=== PATIENT | female | born 1990 | race Caucasian/White ===

== ENCOUNTER 2020-09-08 09:47 | Emergency (ER) | payer OTHER ==
--- NOTE | 2020-09-08 09:55 | ERPHSYRPT ---
- History of Present Illness Time Seen by Provider: 09/08/20 09:55 Source: patient Exam Limitations: no limitations Physician History: This is a 30-year-old white female patient of Dr. Stevenson who has chronic lower back pain. Typically right side is worse than the left. Approximately 2 weeks ago patient's back pain was worsening. She was seen by Dr. Stevenson in his office who prescribed naproxen and Flexeril. He also prescribed physical therapy. In the last 2 weeks, the patient has been consistent in using physical therapy. However, in the last couple of days the pain seems to have worsened. Patient has had no falls or acute trauma to the back. Patient has no urinary symptoms. Patient has no loss of bowel or bladder control. No foot drop. Timing/Duration: week(s) (2 to 3 weeks) Method of Injury: other (No injury) Back Pain Location: lumbar spine Back Pain Radiation: buttocks, upper legs Severity of Pain-Max: moderate Severity of Pain-Current: moderate Modifying Factors: Improves With: movement Associated Symptoms: tingling in legs/feet (Mild and intermittent left side), No loss of bowel control, No problems urinating Previous symptoms: same symptoms as today, recently seen, recently treated Allergies/Adverse Reactions: [facility] Allergy (Verified 09/08/20 10:02) Rash by patient Home Medications: Cyclobenzaprine HCl 10 mg [Cyclobenzaprine 10 MG] 1 tab PO TID PRN 09/08/20 [History] Naproxen 375 mg [Naprosyn 375 mg] 1 tab PO BID 09/08/20 [History] Hx Tetanus, Diphtheria Vaccination/Date Given: Yes Hx Influenza Vaccination/Date Given: No Hx Pneumococcal Vaccination/Date Given: No Travel Risk - International Travel Have you traveled outside of the country in past 3 weeks: No - Coronavirus Screening Are you exhibiting any of the following symptoms?: No Close contact with a COVID-19 positive Pt in past 14-21 Days: No - Review of Systems Constitutional: No Symptoms Eyes: No Symptoms Ears, Nose, & Throat: No Symptoms Respiratory: No Symptoms Cardiac: No Symptoms Abdominal/Gastrointestinal: No Symptoms Genitourinary Symptoms: No Symptoms Musculoskeletal: Back Pain, No Injury Skin: No Symptoms Neurological: No Symptoms Psychological: No Symptoms Endocrine: No Symptoms Hematologic/Lymphatic: No Symptoms Immunological/Allergic: No Symptoms All Other Systems: Reviewed and Negative - Past Medical History Pertinent Past Medical History: No Neurological History: No Pertinent History Cardiac History: No Pertinent History Respiratory History: No Pertinent History Endocrine Medical History: No Pertinent History Musculoskeletal History: No Pertinent History Other Medical History: past back pain. - Past Surgical History Past Surgical History: Yes Neuro Surgical History: No Pertinent History Cardiac: No Pertinent History Respiratory: No Pertinent History Gastrointestinal: No Pertinent History Genitourinary: No Pertinent History Musculoskeletal: No Pertinent History Female Surgical History: No Pertinent History - Social History Smoking Status: Never smoker How long have you smoked: none Exposure to second hand smoke: No Drug Use: none Patient Lives Alone: No - Nursing Vital Signs Nursing Vital Signs: Initial Vital Signs Temperature 98.0 F 09/08/20 10:04 Pulse Rate 88 09/08/20 10:04 Respiratory Rate 18 09/08/20 10:04 Blood Pressure 131/60 09/08/20 10:04 O2 Sat by Pulse Oximetry 98 09/08/20 10:04 Pain Scale Pain Intensity 8 - Physical Exam General Appearance: no apparent distress, alert, anxiety Eye Exam: PERRL/EOMI, eyes nml inspection Ears, Nose, Throat Exam: normal ENT inspection, moist mucous membranes Neck Exam: normal inspection, non-tender, supple, full range of motion Respiratory Exam: airway intact, No chest tenderness, No respiratory distress Gastrointestinal Exam: No tenderness Pelvic Exam: not done Rectal Exam: not done Back Exam: normal inspection, decreased range of motion, muscle spasm Extremity Exam: normal inspection, normal range of motion, pelvis stable Neurologic Exam: alert, oriented x 3, cooperative, central sterilization technician II-XII nml as tested, normal mood/affect, nml cerebellar function, nml station & gait, sensation nml Skin Exam: normal color, warm, dry Lymphatic Exam: No adenopathy SpO2 Interpretation: normal O2 Delivery: Room Air - Course Nursing assessment & vital signs reviewed: Yes Ordered Tests: Medication Summary Discontinued Medications Generic Name Dose Route Start Last Admin Trade Name Freq PRN Reason Stop Dose Admin Methylprednisolone Sodium Succinate 125 mg 09/08/20 10:16 Solu-Medrol 125 Mg IM 09/08/20 10:17 STAT ONE - Progress Progress: pain not gone completely, re-examined Progress Note: 09/08/20 10:23 Medical decision making: This patient recently underwent x-rays of her hips and lumbar spine. There is no acute fracture, subluxation or dislocation. I will not repeat the x-rays. I will change her medication regimen to help her pain. She is to follow-up with Dr. Stevenson in his office and they can make arrangements for an outpatient MRI as appropriate. Counseled pt/family regarding: diagnosis, need for follow-up, rad results - Departure Departure Disposition: Home Clinical Impression: Back pain Condition: Stable Critical Care Time: No Referrals: RACHANA STEVENSON [Primary Care Provider] - Additional Instructions: Stop your naproxen. Stop your Flexeril. Take the new medications as prescribed. Call Dr. Stevenson's office today to make arrangements for follow-up appointment and for further management of your back pain Prescriptions: Hydrocodone/APAP 5-325 Tab^^^ [Lula 5-325 Tablet^^^] 1 tab PO Q8H PRN PRN #6 tablet MDD 3 PRN Reason: Pain Carisoprodol 350 mg [Soma 350 mg] 350 mg PO Q8H PRN PRN #10 tablet PRN Reason: Muscle Spasms Prednisone 10 mg [Deltasone 10 mg] 10 mg PO TID #12 tablet
[2020-09-08] MEDS ORDERED: solu-MEDROL 125 MG ONE (10:20)
[2020-09-08] MEDS: solu-MEDROL 125 MG IM ONE (10:22)
[2020-09-08 10:53] VITALS: BP 107/63; PULSE 75; O2SAT 97
== END 2020-09-08 10:50 | disposition home or self-care (01) ==
LOC: ED 09:47
DX: M54.5 Low back pain (principal); G89.4 Chronic pain syndrome; F45.42 Pain disorder with related psychological factors; R25.2 Cramp and spasm
CPT/HCPCS: 96372; 99283; J2930

== ENCOUNTER 2021-03-18 12:39 | Day surgery (SDC) | payer OTHER ==
[2013-08-15 12:25] VITALS: BP 113/63
[2021-03-18] MEDS ORDERED: Depo-Medrol 40 MG/ML IM ONE (12:40)
[2021-03-18] MEDS ORDERED: Xylocaine 1% Vial 30 ML PF IJ ONE (12:40)
[2021-03-18] MEDS ORDERED: Sodium Chloride 0.9(Preservative Free) 10 ML IJ ONE (12:40)
--- NOTE | 2021-03-18 14:55 | XRAY ---
Indication: Left L4-S1 transforaminal BI. Intraoperative fluoroscopy provided for 25 seconds. 5 digital spot images submitted for interpretation demonstrates posterior needle tips projecting over the expected left L4 and L5 nerve roots. Small amount of contrast injected for needle tip placement. Correlate with intraoperative findings/report.
--- NOTE | 2021-03-18 14:59 | XRAY ---
25 seconds fluoroscopy time in surgery for left L4-S1 transforaminal BI.
[2021-03-18] MEDS ORDERED: Lactated Ringers 1,000 ML IV ONE (16:05)
== END 2021-03-18 14:42 | disposition home or self-care (01) ==
LOC: SDC-PAIN 12:39
PROVIDERS: ATTEND Psychiatry & Neurology Pain Medicine
DX: M54.16 Radiculopathy, lumbar region (principal); F32.9 Major depressive disorder, single episode, unspecified; F41.9 Anxiety disorder, unspecified
CPT/HCPCS: 72100; 77003; 84703; J1030; J2001

== ENCOUNTER 2023-11-02 09:46 | Emergency (ER) | payer OTHER ==
--- NOTE | 2023-11-02 09:59 | ERPHSYRPT ---
- History of Present Illness Time Seen by Provider: 11/02/23 09:59 Source: patient Exam Limitations: no limitations Physician History: This is a 33-year-old white female patient of Dr. Stevenson who is concerned that she might be miscarrying a 12-week old fetus. Patient has not seen her associate professor of counseling. She has not obtained an ultrasound yet. Patient noticed some spotting vaginally approximately 5 days ago. She did not experience pain until late last evening and earlier today. The patient has been passing clots. The cramping is in the pelvis and it is worsening. Patient states this is her fourth . Patient has a history of chronic low back pain. She does have a pain specialist that she has seen in the past, Dr. Luis. Patient denies chest pain. Patient denies shortness of breath. Timing/Duration: day(s) (5), worse Severity: mild (To moderate) Modifying Factors: Improves With: nothing Associated Symptoms: abdominal pain (Suprapubic and pelvic cramping), No shortness of breath, No chest pain, No fever, No loss of appetite Allergies/Adverse Reactions: cefaclor [From [employer]] Allergy (Verified 11/02/23 10:03) Rash by patient Home Medications: No Reportable Medications [No Reported Medications] 11/02/23 [History] Hx Tetanus, Diphtheria Vaccination/Date Given: Yes Hx Influenza Vaccination/Date Given: No Hx Pneumococcal Vaccination/Date Given: No Travel Risk - International Travel Have you traveled outside of the country in past 3 weeks: No - Coronavirus Screening Are you exhibiting any of the following symptoms?: No Close contact with a COVID-19 positive Pt in past 14-21 Days: No - Review of Systems Constitutional: No Symptoms Eyes: No Symptoms Ears, Nose, & Throat: No Symptoms Respiratory: No Symptoms Cardiac: No Symptoms Abdominal/Gastrointestinal: Abdominal Pain (Suprapubic and pelvic cramping) Genitourinary Symptoms: Vaginal Bleeding Musculoskeletal: No Symptoms Skin: No Symptoms Neurological: No Symptoms Psychological: No Symptoms Endocrine: No Symptoms Hematologic/Lymphatic: No Symptoms Immunological/Allergic: No Symptoms All Other Systems: Reviewed and Negative - Past Medical History Pertinent Past Medical History: No Neurological History: No Pertinent History Cardiac History: No Pertinent History Respiratory History: No Pertinent History Endocrine Medical History: No Pertinent History Musculoskeletal History: No Pertinent History Other Medical History: past back pain. - Past Surgical History Past Surgical History: Yes Neuro Surgical History: No Pertinent History Cardiac: No Pertinent History Respiratory: No Pertinent History Gastrointestinal: No Pertinent History Genitourinary: No Pertinent History Musculoskeletal: No Pertinent History Female Surgical History: No Pertinent History - Social History Smoking Status: Never smoker How long have you smoked: none Exposure to second hand smoke: No Drug Use: none Patient Lives Alone: No - Nursing Vital Signs Nursing Vital Signs: Initial Vital Signs Pulse Rate 75 11/02/23 10:02 Respiratory Rate 19 11/02/23 10:02 Blood Pressure 115/75 11/02/23 10:02 O2 Sat by Pulse Oximetry 100 11/02/23 10:02 Pain Scale Pain Intensity 5 - Physical Exam General Appearance: mild distress, alert, anxiety Eye Exam: PERRL/EOMI, eyes nml inspection Ears, Nose, Throat Exam: normal ENT inspection, moist mucous membranes Neck Exam: normal inspection, non-tender, supple, full range of motion Respiratory Exam: normal breath sounds, lungs clear, airway intact, No chest tenderness, No respiratory distress Cardiovascular Exam: regular rate/rhythm, normal heart sounds, normal peripheral pulses Gastrointestinal/Abdomen Exam: soft, normal bowel sounds, tenderness, No guarding (Suprapubic and pelvic cramping) Pelvic Exam: not done Rectal Exam: not done Extremity Exam: normal inspection, normal range of motion, pelvis stable Neurologic Exam: alert, oriented x 3, cooperative, 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, normal mood/affect, nml station & gait, sensation nml Skin Exam: normal color, warm, dry Lymphatic Exam: No adenopathy SpO2 Interpretation: normal O2 Delivery: Room Air - Course Nursing assessment & vital signs reviewed: Yes Ordered Tests: Active Orders 24 hr Category Date Time Status IV Insertion STAT Care 11/02/23 10:07 Active OB <14 WKS 1ST GESTATION [US] Stat Exams 11/02/23 10:11 Completed CBC W DIFF Stat Lab 11/02/23 10:35 Completed CMP Stat Lab 11/02/23 10:35 Completed HCG, Quantitative (Inhouse) Stat Lab 11/02/23 10:35 Completed UA W/RFX UR CULTURE Stat Lab 11/02/23 11:45 Ordered Lab/Rad Data: Laboratory Result Diagrams 11/02/23 10:35 11/02/23 10:35 Laboratory Results 11/02/23 11/02/23 11/02/23 Range/Units 10:35 10:35 10:35 WBC (4.0-10.5) x10^3/uL RBC (4.1-5.4) x10^6/uL Hgb (12.0-16.0) g/dL Hct (35-47) % MCV (78-100) fL MCH (26-32) pg MCHC (32-36) g/dL RDW (11.5-14.0) % Plt Count (150-450) x10^3/uL MPV (7.5-11.0) fL Gran % (36.0-66.0) % Immature Gran % (Auto) (0.00-0.4) % Nucleat RBC Rel Count (0.00-0.1) % Eos # (Auto) (0-0.5) x10^3/uL Immature Gran # (Auto) (0.00-0.03) x10^3u/L Absolute Lymphs (auto) (1.0-4.6) x10^3/uL Absolute Monos (auto) (0.0-1.3) x10^3/uL Absolute Nucleated RBC (0.00-0.01) x10^3u/L Lymphocytes % (24.0-44.0) % Monocytes % (0.0-12.0) % Eosinophils % (0.00-5.0) % Basophils % (0.0-0.4) % Absolute Granulocytes (1.4-6.9) x10^3/uL Basophils # (0-0.4) x10^3/uL Sodium 134 L (137-145) mmol/L Potassium 3.8 (3.5-5.1) mmol/L Chloride 104 (98-107) mmol/L Carbon Dioxide 21 L (22-30) mmol/L Anion Gap 11.7 (5-15) MEQ/L BUN 12 (7-17) mg/dL Creatinine 0.80 (0.52-1.04) mg/dL Estimated GFR 99.7 ML/MIN Glucose 103 (74-106) mg/dL Calcium 9.0 (8.4-10.2) mg/dL Total Bilirubin 0.60 (0.2-1.3) mg/dL AST 25 (14-36) U/L ALT 14 (0-35) U/L Alkaline Phosphatase 65 (38-126) U/L Serum Total Protein 7.7 (6.3-8.2) g/dL Albumin 4.3 (3.5-5.0) g/dL Beta HCG, Quant 48800 mIU/ml Rh Factor POSITIVE 11/02/23 Range/Units 10:35 WBC 9.7 (4.0-10.5) x10^3/uL RBC 4.78 (4.1-5.4) x10^6/uL Hgb 10.7 L (12.0-16.0) g/dL Hct 35.1 (35-47) % MCV 73.4 L (78-100) fL MCH 22.4 L (26-32) pg MCHC 30.5 L (32-36) g/dL RDW 18.0 H (11.5-14.0) % Plt Count 274 (150-450) x10^3/uL MPV 10.1 (7.5-11.0) fL Gran % 73.0 H (36.0-66.0) % Immature Gran % (Auto) 0.2 (0.00-0.4) % Nucleat RBC Rel Count 0.0 (0.00-0.1) % Eos # (Auto) 0.17 (0-0.5) x10^3/uL Immature Gran # (Auto) 0.02 (0.00-0.03) x10^3u/L Absolute Lymphs (auto) 1.68 (1.0-4.6) x10^3/uL Absolute Monos (auto) 0.69 (0.0-1.3) x10^3/uL Absolute Nucleated RBC 0.00 (0.00-0.01) x10^3u/L Lymphocytes % 17.3 L (24.0-44.0) % Monocytes % 7.1 (0.0-12.0) % Eosinophils % 1.8 (0.00-5.0) % Basophils % 0.6 (0.0-0.4) % Absolute Granulocytes 7.09 H (1.4-6.9) x10^3/uL Basophils # 0.06 (0-0.4) x10^3/uL Sodium (137-145) mmol/L Potassium (3.5-5.1) mmol/L Chloride (98-107) mmol/L Carbon Dioxide (22-30) mmol/L Anion Gap (5-15) MEQ/L BUN (7-17) mg/dL Creatinine (0.52-1.04) mg/dL Estimated GFR ML/MIN Glucose (74-106) mg/dL Calcium (8.4-10.2) mg/dL Total Bilirubin (0.2-1.3) mg/dL AST (14-36) U/L ALT (0-35) U/L Alkaline Phosphatase (38-126) U/L Serum Total Protein (6.3-8.2) g/dL Albumin (3.5-5.0) g/dL Beta HCG, Quant mIU/ml Rh Factor - Progress Progress: improved, pain not gone completely Progress Note: 11/02/23 10:17 This patient's medical issue is 1 of moderate complexity. The level of complexity in the workup performed is based on review of the patient's past medical history review of the patient's medication list, review of patient's drug allergy list, history of present illness and physical findings on examination. This patient's workup includes placement of intravenous line, CBC, CMP, urinalysis, qualitative and quantitative test, and OB ultrasound less than 14 weeks. 11/02/23 12:05 I reviewed and interpreted the patient's lab results. Patient does have a hemoglobin is slightly low at 10.7. She has a quantitative hCG at over 14,000. The OB early ultrasound less than 14 weeks shows a thickened endometrial stripe and endocervix. 2.7 cm cystic mass with tiny fluid present. No pole or heart tones present. Query blighted ovum with impending spontaneous . No suspicious adnexal masses. 11/02/23 12:07 Of importance, after the ultrasound was performed, the patient did pass tissue with the dimensions of 2.7 cm cystic mass. We sent this past tissue to pathology for gross examination determine if this is miscarriage product of conception. Counseled pt/family regarding: lab results, diagnosis, need for follow-up, rad results Medical Desision Making - Diagnostic Testing Diagnostic test were ordered, analyzed, and reviewed by me: Yes Radiological Interpretation: Reviewed by me, Teleradiologist Report - Risk of complications Low Risk: Low risk of morbidity from additional dx testing or treatment - Departure Departure Disposition: Home Clinical Impression: Miscarriage, threatened, early Condition: Stable Critical Care Time: No Referrals: RACHANA STEVENSON [Primary Care Provider] - Follow up/PCP as directed Additional Instructions: Drink plenty of fluids. Call your associate professor of counseling today to make arrangements for follow-up appointment for examination and repeat quantitative hCG if indicated.
[2023-11-02 10:15] VITALS: TEMP 98.4
[2023-11-02 10:46] LABS: Absolute Neutrophil Ct (ANC) 7.09 x10^3/uL (1.4-6.9); BASOPHIL % 0.6 % (0.0-0.4); Basophil (Absolute #) 0.06 x10^3/uL (0-0.4); Eosinophil % 1.8 % (0.00-5.0); Eosinophil (Absolute #) 0.17 x10^3/uL (0-0.5); Hematocrit 35.1 % (35-47); Hemoglobin 10.7 g/dL (12.0-16.0); IMMATURE GRAN # 0.02 x10^3u/L (0.00-0.03); IMMATURE GRAN % 0.2 % (0.00-0.4); Lymphocyte (Absolute #) 1.68 x10^3/uL (1.0-4.6); Lymphocytes % 17.3 % (24.0-44.0); Mean Cell Volume 73.4 fL (78-100); Mean Corpuscular Hemoglobin 22.4 pg (26-32); Mean Corpuscular Hgb Concent. 30.5 g/dL (32-36); Mean Platelet Volume 10.1 fL (7.5-11.0); Monocyte (Absolute #) 0.69 x10^3/uL (0.0-1.3); Monocytes % 7.1 % (0.0-12.0); Platelet Count 274 x10^3/uL (150-450); Red Blood Count 4.78 x10^6/uL (4.1-5.4); White Blood Count 9.7 x10^3/uL (4.0-10.5)
[2023-11-02 11:07] LABS: ALBUMIN 4.3 g/dL (3.5-5.0); ANION GAP 11.7 MEQ/L (5-15); BILIRUBIN,TOTAL 0.6 mg/dL (0.2-1.3); Creatinine 1 0.8 mg/dL (0.52-1.04); EST GLOMERULAR FILTRATION RATE 99.7 ML/MIN; Potassium 3.8 mmol/L (3.5-5.1); Total Protein 7.7 g/dL (6.3-8.2)
--- NOTE | 2023-11-02 11:53 | XRAY ---
Indication: Bleeding and cramping. Two-dimensional transabdominal early OB ultrasound performed. Comparison: None for this . Uterus is retroflexed with thickened endometrial stripe up to 3.5 cm. Endocervix demonstrates tiny fluid with a 2.7 cm cystic mass without pole/heart tones. Left and right ovaries are sonographically unremarkable. No suspicious adnexal mass or free fluid. Impression: Thickened endometrial stripe and endocervix 2.7 cm cystic mass with tiny fluid. No pole/heart tones. Query blighted ovum with impending spontaneous .
[2023-11-02 12:33] LABS: Appearance Clear (Clear); Bacteria None Seen /HPF (None Seen); Bilirubin Negative (Negative); Blood Moderate (Negative); Epithelial Cells None Seen /HPF (None Seen); Glucose, Urine Negative (Negative); Hyaline Casts NONE SEEN /LPF (0-2); Ketones Negative (Negative); Leukocyte Esterase Negative (Negative); Nitrite Negative (Negative); Ph 7.5 (4.6-8.0); Protein,Urine Dip Negative (Negative); RBC >100 /HPF (0-5); Urobilinogen 0.2 mg/dL (0.2); WBC 0-2 /HPF (0-5)
[2023-11-02 12:34] LABS: ADD URINE CULTURE? NO (NO)
[2023-11-02 12:42] VITALS: BP 116/68; PULSE 79; RESP 22; O2SAT 99
== END 2023-11-02 12:53 | disposition home or self-care (01) ==
LOC: ED 09:46
DX: O20.0 Threatened abortion (principal); R10.2 Pelvic and perineal pain
CPT/HCPCS: 36000; 36415; 76801; 80053; 81001; 84702; 85025; 86901; 99283

== ENCOUNTER 2024-11-11 21:44 | Observation (INO) | payer BC, OTHER ==
[2024-11-11 22:09] VITALS: TEMP 98.1
[2024-11-11] MEDS ORDERED: Lactated Ringers 1,000 ML IV ONE ×2 (22:23→22:39)
[2024-11-11] MEDS ORDERED: Sodium Chloride 100ML MINI-BAG PLUS 100 ML IV ONE (22:37)
[2024-11-11] MEDS ORDERED: OMNIPEN 2 GM ONE (22:37)
[2024-11-11] MEDS ORDERED: Celestone Soluspan 6MG/ML ONE (22:38)
[2024-11-11] MEDS ORDERED: Magnesium Sulfate 40 Gm/1000 Ml H2O Premix*** 1,000 ML IV ONE (22:39)
[2024-11-11] MEDS: Celestone Soluspan 6MG/ML IM ONE (22:54)
[2024-11-11 22:55] LABS: Hematocrit 38.7 % (34.1-44.9); Mean Cell Volume 87.6 fL (79.4-94.8); Mean Corpuscular Hemoglobin 29.4 pg (25.6-32.2); Mean Corpuscular Hgb Concent. 33.6 g/dL (32.2-35.5); Mean Platelet Volume 10.3 fL (9.4-12.3); Platelet Count 171 x10^3/uL (182-369); Red Blood Count 4.42 x10^6/uL (3.93-5.22)
[2024-11-11] MEDS: Lactated Ringers 1,000 ML IV SCH (22:56)
[2024-11-11] MEDS: OMNIPEN 2 GM*** 2 G in Sodium Chloride 100ML MINI-BAG PLUS 100 ML IV ONE (22:56)
[2024-11-11] MEDS: Magnesium Sulfate 40 Gm/1000 Ml H2O Premix*** 1,000 ML IV SCH (22:59)
[2024-11-11 23:00] LABS: Bacteria None Seen /HPF (None Seen); Bilirubin Negative (Negative); Blood Negative (Negative); Epithelial Cells None Seen /HPF (None Seen); Glucose, Urine Negative (Negative); Hyaline Casts NONE SEEN /LPF (0-2); Ketones 15 (Negative); Leukocyte Esterase Negative (Negative); Nitrite Negative (Negative); Ph 6.5 (4.6-8.0); Protein,Urine Dip Negative (Negative); RBC 0-2 /HPF (0-5); Urobilinogen 0.2 mg/dL (0.2); WBC 0-2 /HPF (0-5)
[2024-11-11 23:02] LABS: Appearance Clear (Clear)
[2024-11-11 23:08] LABS: ALBUMIN 3.6 g/dL (3.5-5.0); ANION GAP 11.3 MEQ/L (5-15); BILIRUBIN,TOTAL 0.2 mg/dL (0.2-1.3); Calcium 9.1 mg/dL (8.4-10.2); Creatinine 1 0.53 mg/dL (0.52-1.04); EST GLOMERULAR FILTRATION RATE 124.4 ML/MIN; MAGNESIUM 1.8 mg/dL (1.6-2.3); Potassium 3.5 mmol/L (3.5-5.1); Total Protein 6.7 g/dL (6.3-8.2)
[2024-11-11 23:10] LABS: INR 0.89 (0.8-3.0); PROTIME 9.8 SECONDS (9.4-12.5); PTT 26.3 SECONDS (25.1-36.5)
[2024-11-11 23:13] LABS: Amphetamine,Urine NEGATIVE (NEGATIVE); Barbiturate,Urine NEGATIVE (NEGATIVE); Benzodiazepine,Urine NEGATIVE (NEGATIVE); Cocaine,Urine NEGATIVE (NEGATIVE); Methadone,Urine NEGATIVE (NEGATIVE); Opiate,Urine NEGATIVE (NEGATIVE); PCP,Urine NEGATIVE (NEGATIVE); THC,Urine NEGATIVE (NEGATIVE)
[2024-11-11 23:54] LABS: Slide Review YES
[2024-11-12 00:01] LABS: ABO TYPING O; Antibody Screen NEGATIVE (NEGATIVE); RH TYPING POSITIVE
[2024-11-12] MEDS ORDERED: Calcium Gluconate 10% 1000 MG IV ONE (00:37)
[2024-11-12] MEDS ORDERED: Pitocin 10 UNITS/ML ONE (00:37)
[2024-11-12 01:03] VITALS: BP 121/59; PULSE 97; RESP 20; O2SAT 97
[2024-11-12] MEDS ORDERED: OMNIPEN 1 GM*** 1 GM in Sodium Chloride 100ML MINI-BAG PLUS 100 ML IV SCH (03:00)
== END 2024-11-12 01:15 ==
LOC: OB 21:44 → UNDOADMOB 21:44 → UNDODISOB 11-12 01:15
PROVIDERS: ADMIT Obstetrics & Gynecology; ATTEND Obstetrics & Gynecology
DX: Z34.83 Encounter for supervision of other normal pregnancy, third trimester (principal); Z3A.34 34 weeks gestation of pregnancy
CPT/HCPCS: 36415; 80053; 80307; 81001; 83735; 85027; 85610; 85730; 86850; 86900; 86901; 87653; 96372; G0378; G0379; J0290; J0612; J0702; J2590

== ENCOUNTER 2024-12-26 20:21 | Observation (INO) | payer SELFPAY ==
[2024-12-26] MEDS ORDERED: PITOCIN 30 UNITS/ LR 500 ML 30 UNITS/500 ML PLAST..BAG IV SCH (20:30)
[2024-12-26 20:39] LABS: Absolute Neutrophil Ct (ANC) 20.27 x10^3/uL (1.56-6.13); BASOPHIL % 0.2 % (0.1-1.2); Basophil (Absolute #) 0.04 x10^3/uL (0.01-0.08); Eosinophil (Absolute #) 0.01 x10^3/uL (0.04-0.36); Hematocrit 35.4 % (34.1-44.9); Hemoglobin 11.9 g/dL (11.2-15.7); IMMATURE GRAN # 0.15 x10^3u/L (0.001-0.031); IMMATURE GRAN % 0.6 % (0.001-0.429); Lymphocyte (Absolute #) 1.41 x10^3/uL (1.18-3.74); Lymphocytes % 6.1 % (19.3-51.7); Mean Cell Volume 93.4 fL (79.4-94.8); Mean Corpuscular Hemoglobin 31.4 pg (25.6-32.2); Mean Corpuscular Hgb Concent. 33.6 g/dL (32.2-35.5); Mean Platelet Volume 10.8 fL (9.4-12.3); Monocyte (Absolute #) 1.24 x10^3/uL (0.24-0.86); Monocytes % 5.4 % (4.7-12.5); Neutrophil % 87.7 % (34.0-71.1); Platelet Count 135 x10^3/uL (182-369); Red Blood Count 3.79 x10^6/uL (3.93-5.22); Red Cell Distribution Width 15.8 % (11.7-14.4); White Blood Count 23.1 x10^3/uL (3.98-10.04)
[2024-12-26] MEDS: Lactated Ringers 1,000 ML IV SCH (20:39)
[2024-12-26] MEDS: TRANEXAMIC 1,000 MG/100ML-NACL 1,000 MG/100 ML PIGGYBACK IV ONE (20:39)
[2024-12-26 20:49] LABS: ALBUMIN 3.2 g/dL (3.5-5.0); ANION GAP 11.1 MEQ/L (5-15); BILIRUBIN,TOTAL 0.4 mg/dL (0.2-1.3); Calcium 8.5 mg/dL (8.4-10.2); Creatinine 1 0.66 mg/dL (0.52-1.04); Potassium 4.7 mmol/L (3.5-5.1); Total Protein 5.6 g/dL (6.3-8.2)
[2024-12-26 21:12] LABS: ABO TYPING O; Antibody Screen NEGATIVE (NEGATIVE); RH TYPING POSITIVE
[2024-12-26] MEDS ORDERED: Mylicon 80MG PO PRN (21:18)
[2024-12-26] MEDS ORDERED: Dulcolax 10 MG SUPP PR PRN (21:18)
[2024-12-26] MEDS: MOTRIN 400 MG PO PRN (21:26)
[2024-12-26] MEDS ORDERED: TUCKS TP ONE (21:30)
[2024-12-26] MEDS: Dermoplast Spray TP PRN (21:31)
[2024-12-26] MEDS: LANSINOH 40 GM TOP PRN (22:05)
[2024-12-26] MEDS: CORTISONE 1% CREAM TP PRN (22:05)
[2024-12-26 22:59] LABS: Slide Review 1 YES
[2024-12-26 23:18] LABS: CROSS MATCH (PRBC) COMPATIBLE (COMPATIBLE)
[2024-12-26 23:19] LABS: CROSS MATCH (PRBC) COMPATIBLE (COMPATIBLE)
[2024-12-26] MEDS: TYLENOL EXTRA STRENGTH 500 MG PO PRN (23:26)
[2024-12-26] MEDS: Docusate Sodium 100 MG PO SCH (23:29)
[2024-12-27 05:00] LABS: Absolute Neutrophil Ct (ANC) 13.55 x10^3/uL (1.56-6.13); BASOPHIL % 0.2 % (0.1-1.2); Basophil (Absolute #) 0.04 x10^3/uL (0.01-0.08); Eosinophil % 0.7 % (0.7-5.8); Eosinophil (Absolute #) 0.12 x10^3/uL (0.04-0.36); Hematocrit 28.2 % (34.1-44.9); Hemoglobin 9.6 g/dL (11.2-15.7); IMMATURE GRAN # 0.09 x10^3u/L (0.001-0.031); IMMATURE GRAN % 0.5 % (0.001-0.429); Lymphocyte (Absolute #) 2.28 x10^3/uL (1.18-3.74); Lymphocytes % 13.5 % (19.3-51.7); Mean Cell Volume 94.9 fL (79.4-94.8); Mean Corpuscular Hemoglobin 32.3 pg (25.6-32.2); Monocyte (Absolute #) 0.86 x10^3/uL (0.24-0.86); Monocytes % 5.1 % (4.7-12.5); Platelet Count 134 x10^3/uL (182-369); Red Blood Count 2.97 x10^6/uL (3.93-5.22); White Blood Count 16.9 x10^3/uL (3.98-10.04)
[2024-12-27 06:23] LABS: Slide Review 1 YES
[2024-12-27] MEDS ORDERED: Lactated Ringers 1,000 ML IV SCH (09:30)
--- NOTE | 2024-12-27 09:30 | XRAY ---
Indication: Retained products of conception. Two-dimensional transabdominal pelvic sonogram performed. Comparison: July 02, 2021 Uterus anteverted and now enlarged measuring 22.9 x 10.7 x 13.5 cm consistent with recent . Endometrial cavity demonstrates 11.1 x 4.0 x 5.9 cm heterogeneous echogenicity in the lower uterine segment and endocervix favoring retained products of conception. No abnormal fluid collection. Neither ovaries are visualized. No suspicious adnexal mass or free fluid. Impression: Endometrial cavity heterogeneous echogenicity as detailed favoring retained products of conception. Nonvisualization both ovaries.
--- NOTE | 2024-12-27 09:43 | PCM.HP ---
History of Present Illness - Chief Complaint Chief Complaint: post History of Present Illness: is a 34 year old female. 34 yo sp on dec 26 presented to labor and delivery with heavy bleeding that was noted upon delivery at home with director of financial planning and states having delivered at 4;06 pm with subsequent delivery of placenta about 15 minutes later. states after placenta delivery had heavy bleeding afterwards and was then sent via ambulance to labor delivery on dec 26. pt was noted having normal vitals upon arrival to labor delivery and was told via ambulance service having a blood loss of about 1000cc. pt was however noted having minimal vaginal bleeding in labor delivery when examined by nurses with firm uterus that was noted. pt was noted having passed a large clot during the night on dec 27 and was noted having approximately 930 cc blood loss however still maintaining normal vitals with hgb upon admission at 11 and am draw was 9.6. Medications & Allergies Home Medications: Home Medication List Calcium Carbonate [Calcium] 500 mg PO DAILY 11/11/24 [History Confirmed 12/26/24] Ferrous Sulfate [Iron] 325 mg PO DAILY 11/11/24 [History Confirmed 12/26/24] Magnesium 200 mg PO DAILY 11/11/24 [History Confirmed 12/26/24] Allergies/Adverse Reactions: Allergies Allergy/AdvReac Type Severity Reaction Status Date / Time cefaclor [From Ceclor] Allergy Rash Verified 11/02/23 10:03 - Past Medical History Past Medical History: No Neurological History: No Pertinent History Cardiac History: No Pertinent History Respiratory History: No Pertinent History Endocrine Medical History: No Pertinent History Musculoskelatal History: No Pertinent History Comment: past back pain. - Female History Are you now?: No () - Past Surgical History Past Surgical History: Yes Neuro Surgical History: No Pertinent History Cardiac History: No Pertinent History Respiratory Surgery: No Pertinent History GI Surgical History: No Pertinent History Genitourinary Surgical Hx: No Pertinent History Musculskeletal Surgical Hx: Other Female Surgical History: No Pertinent History Other Surgical History: back surgery with rods. - Social History Smoking Status: Never smoker How long have you smoked: none Exposure to second hand smoke: No Alcohol: None Drug Use: none - Social Determinants of Health Will the patient participate in the screening: Yes Do you worry about a steady place to live?: No Do you have any problems with any of the following?: No known problems In the past 12 months,have you had to go without utilities?: No Have you or anyone in your house had to go without enough: No Transportation Issues: No Has anyone in your support network made you feel unsafe?: No Does the patient want assistance with any of the above?: No - Physical Exam Vital Signs: Vital Signs - 24 hr Temp Pulse Resp BP Pulse Ox 12/27/24 07:20 97.4 F 95 H 18 112/68 99 12/27/24 04:06 98 F 106 H 18 122/66 100 12/27/24 04:00 98 F 106 H 18 122/66 100 12/27/24 02:06 97.3 F 97 H 18 108/60 99 12/27/24 00:00 107 H 18 90/59 97 12/26/24 23:33 98 F 97 H 18 109/63 100 12/26/24 23:05 98 F 97 H 18 109/63 100 12/26/24 22:00 97.8 F 83 18 113/66 100 12/26/24 20:45 93 H 18 108/67 100 12/26/24 20:30 98.3 F 91 H 18 111/64 99 12/26/24 20:25 98.3 F 93 H 18 108/67 100 12/26/24 20:21 98.3 F 91 H 18 111/64 99 Neurologic Exam: oriented x 3 Pelvic Exam: other (minimal bleeding noted) Results - Labs Lab/Micro Results: Lab Results-Last 24 Hours 12/26/24 12/26/24 12/26/24 Range/Units 20:20 20:20 20:20 WBC 23.1 H (3.98-10.04) x10^3/uL RBC 3.79 L (3.93-5.22) x10^6/uL Hgb 11.9 (11.2-15.7) g/dL Hct 35.4 (34.1-44.9) % MCV 93.4 (79.4-94.8) fL MCH 31.4 (25.6-32.2) pg MCHC 33.6 (32.2-35.5) g/dL RDW 15.8 H (11.7-14.4) % Plt Count 135 L (182-369) x10^3/uL MPV 10.8 (9.4-12.3) fL Gran % 87.7 H (34.0-71.1) % Immature Gran % (Auto) 0.6 H (0.001-0.429) % Nucleat RBC Rel Count 0.0 (0.00-0.2) % Eos # (Auto) 0.01 L (0.04-0.36) x10^3/uL Immature Gran # (Auto) 0.15 H (0.001-0.031) x10^3u/L Absolute Lymphs (auto) 1.41 (1.18-3.74) x10^3/uL Absolute Monos (auto) 1.24 H (0.24-0.86) x10^3/uL Absolute Nucleated RBC 0.00 (0.00-0.012) x10^3u/L Lymphocytes % 6.1 L (19.3-51.7) % Monocytes % 5.4 (4.7-12.5) % Eosinophils % 0.0 L (0.7-5.8) % Basophils % 0.2 (0.1-1.2) % Absolute Granulocytes 20.27 H (1.56-6.13) x10^3/uL Basophils # 0.04 (0.01-0.08) x10^3/uL APTT 24.4 L (25.1-36.5) SECONDS Sodium (135-145) mmol/L Potassium (3.5-5.1) mmol/L Chloride (98-107) mmol/L Carbon Dioxide (22-30) mmol/L Anion Gap (5-15) MEQ/L BUN (7-17) mg/dL Creatinine (0.52-1.04) mg/dL Estimated GFR ML/MIN Glucose (74-106) mg/dL Calcium (8.4-10.2) mg/dL Total Bilirubin (0.2-1.3) mg/dL AST (14-36) U/L ALT (0-35) U/L Alkaline Phosphatase (38-126) U/L Serum Total Protein (6.3-8.2) g/dL Albumin (3.5-5.0) g/dL Slides for Path Review YES ABO Group O Rh Factor POSITIVE Antibody Screen NEGATIVE (NEGATIVE) Crossmatch COMPATIBLE (COMPATIBLE) 12/26/24 12/26/24 12/27/24 Range/Units 20:20 20:20 04:30 WBC 16.9 H (3.98-10.04) x10^3/uL RBC 2.97 L (3.93-5.22) x10^6/uL Hgb 9.6 L (11.2-15.7) g/dL Hct 28.2 L (34.1-44.9) % MCV 94.9 H (79.4-94.8) fL MCH 32.3 H (25.6-32.2) pg MCHC 34.0 (32.2-35.5) g/dL RDW 16.0 H (11.7-14.4) % Plt Count 134 L (182-369) x10^3/uL MPV 11.0 (9.4-12.3) fL Gran % 80.0 H (34.0-71.1) % Immature Gran % (Auto) 0.5 H (0.001-0.429) % Nucleat RBC Rel Count 0.0 (0.00-0.2) % Eos # (Auto) 0.12 (0.04-0.36) x10^3/uL Immature Gran # (Auto) 0.09 H (0.001-0.031) x10^3u/L Absolute Lymphs (auto) 2.28 (1.18-3.74) x10^3/uL Absolute Monos (auto) 0.86 (0.24-0.86) x10^3/uL Absolute Nucleated RBC 0.00 (0.00-0.012) x10^3u/L Lymphocytes % 13.5 L (19.3-51.7) % Monocytes % 5.1 (4.7-12.5) % Eosinophils % 0.7 (0.7-5.8) % Basophils % 0.2 (0.1-1.2) % Absolute Granulocytes 13.55 H (1.56-6.13) x10^3/uL Basophils # 0.04 (0.01-0.08) x10^3/uL APTT (25.1-36.5) SECONDS Sodium 130 L (135-145) mmol/L Potassium 4.7 (3.5-5.1) mmol/L Chloride 102 (98-107) mmol/L Carbon Dioxide 21 L (22-30) mmol/L Anion Gap 11.1 (5-15) MEQ/L BUN 14 (7-17) mg/dL Creatinine 0.66 (0.52-1.04) mg/dL Estimated GFR 118.0 ML/MIN Glucose 101 (74-106) mg/dL Calcium 8.5 (8.4-10.2) mg/dL Total Bilirubin 0.40 (0.2-1.3) mg/dL AST 38 H (14-36) U/L ALT 24 (0-35) U/L Alkaline Phosphatase 85 (38-126) U/L Serum Total Protein 5.6 L (6.3-8.2) g/dL Albumin 3.2 L (3.5-5.0) g/dL Slides for Path Review YES ABO Group Rh Factor Antibody Screen (NEGATIVE) Crossmatch COMPATIBLE (COMPATIBLE) - Radiology Impressions Radiology Exams & Impressions: Radiology Procedures Category Date Time Status PELVIC [US] Stat Exams 12/27/24 07:00 Completed Assessment/Plan (1) Retained placental fragment Current Visit: Yes Status: Acute Code(s): O72.0 - THIRD-STAGE HEMORRHAGE
--- NOTE | 2024-12-27 09:46 | PCM.NOTE ---
Date and Time: 12/27/24942 Subjective Assessment: ppd 1 sp pt resting in bed and was brought in via ambulance service last night after having delivered at home with furnace repair mechanic secondary to heavy vaginal bleeding. currently doing well with stable hgb at 9.6 pt had sono showing retained placental fragments and scheduled for suction d&c vss afebrile abd; soft uterus; firm lochia; mild hgb; 9.6 a/p sp home delivery with furnace repair mechanic with retained tissue will likely proceed with suction d&c at this time will anticipate dc home later today Objective Data Vital Signs: Vital Signs - 24 hr Temp Pulse Resp BP Pulse Ox 12/27/24 07:20 97.4 F 95 H 18 112/68 99 12/27/24 04:06 98 F 106 H 18 122/66 100 12/27/24 04:00 98 F 106 H 18 122/66 100 12/27/24 02:06 97.3 F 97 H 18 108/60 99 12/27/24 00:00 107 H 18 90/59 97 12/26/24 23:33 98 F 97 H 18 109/63 100 12/26/24 23:05 98 F 97 H 18 109/63 100 12/26/24 22:00 97.8 F 83 18 113/66 100 12/26/24 20:45 93 H 18 108/67 100 12/26/24 20:30 98.3 F 91 H 18 111/64 99 12/26/24 20:25 98.3 F 93 H 18 108/67 100 12/26/24 20:21 98.3 F 91 H 18 111/64 99 Pain Assessment - Last Documented Pain Intensity [Lower] 5 Pain Intensity 1 Pain Scale Used 0-10 Pain Scale Intake and Output: Intake & Output 12/24/24 12/25/24 12/26/24 12/27/24 11:59 11:59 11:59 11:59 Intake Total 850 Output Total 1131 Balance -281 Weight 90.904 kg Lab Results: Lab Results-Last 24 Hours 12/26/24 12/26/24 12/26/24 Range/Units 20:20 20:20 20:20 WBC 23.1 H (3.98-10.04) x10^3/uL RBC 3.79 L (3.93-5.22) x10^6/uL Hgb 11.9 (11.2-15.7) g/dL Hct 35.4 (34.1-44.9) % MCV 93.4 (79.4-94.8) fL MCH 31.4 (25.6-32.2) pg MCHC 33.6 (32.2-35.5) g/dL RDW 15.8 H (11.7-14.4) % Plt Count 135 L (182-369) x10^3/uL MPV 10.8 (9.4-12.3) fL Gran % 87.7 H (34.0-71.1) % Immature Gran % (Auto) 0.6 H (0.001-0.429) % Nucleat RBC Rel Count 0.0 (0.00-0.2) % Eos # (Auto) 0.01 L (0.04-0.36) x10^3/uL Immature Gran # (Auto) 0.15 H (0.001-0.031) x10^3u/L Absolute Lymphs (auto) 1.41 (1.18-3.74) x10^3/uL Absolute Monos (auto) 1.24 H (0.24-0.86) x10^3/uL Absolute Nucleated RBC 0.00 (0.00-0.012) x10^3u/L Lymphocytes % 6.1 L (19.3-51.7) % Monocytes % 5.4 (4.7-12.5) % Eosinophils % 0.0 L (0.7-5.8) % Basophils % 0.2 (0.1-1.2) % Absolute Granulocytes 20.27 H (1.56-6.13) x10^3/uL Basophils # 0.04 (0.01-0.08) x10^3/uL APTT 24.4 L (25.1-36.5) SECONDS Sodium (135-145) mmol/L Potassium (3.5-5.1) mmol/L Chloride (98-107) mmol/L Carbon Dioxide (22-30) mmol/L Anion Gap (5-15) MEQ/L BUN (7-17) mg/dL Creatinine (0.52-1.04) mg/dL Estimated GFR ML/MIN Glucose (74-106) mg/dL Calcium (8.4-10.2) mg/dL Total Bilirubin (0.2-1.3) mg/dL AST (14-36) U/L ALT (0-35) U/L Alkaline Phosphatase (38-126) U/L Serum Total Protein (6.3-8.2) g/dL Albumin (3.5-5.0) g/dL Slides for Path Review YES ABO Group O Rh Factor POSITIVE Antibody Screen NEGATIVE (NEGATIVE) Crossmatch COMPATIBLE (COMPATIBLE) 12/26/24 12/26/24 12/27/24 Range/Units 20:20 20:20 04:30 WBC 16.9 H (3.98-10.04) x10^3/uL RBC 2.97 L (3.93-5.22) x10^6/uL Hgb 9.6 L (11.2-15.7) g/dL Hct 28.2 L (34.1-44.9) % MCV 94.9 H (79.4-94.8) fL MCH 32.3 H (25.6-32.2) pg MCHC 34.0 (32.2-35.5) g/dL RDW 16.0 H (11.7-14.4) % Plt Count 134 L (182-369) x10^3/uL MPV 11.0 (9.4-12.3) fL Gran % 80.0 H (34.0-71.1) % Immature Gran % (Auto) 0.5 H (0.001-0.429) % Nucleat RBC Rel Count 0.0 (0.00-0.2) % Eos # (Auto) 0.12 (0.04-0.36) x10^3/uL Immature Gran # (Auto) 0.09 H (0.001-0.031) x10^3u/L Absolute Lymphs (auto) 2.28 (1.18-3.74) x10^3/uL Absolute Monos (auto) 0.86 (0.24-0.86) x10^3/uL Absolute Nucleated RBC 0.00 (0.00-0.012) x10^3u/L Lymphocytes % 13.5 L (19.3-51.7) % Monocytes % 5.1 (4.7-12.5) % Eosinophils % 0.7 (0.7-5.8) % Basophils % 0.2 (0.1-1.2) % Absolute Granulocytes 13.55 H (1.56-6.13) x10^3/uL Basophils # 0.04 (0.01-0.08) x10^3/uL APTT (25.1-36.5) SECONDS Sodium 130 L (135-145) mmol/L Potassium 4.7 (3.5-5.1) mmol/L Chloride 102 (98-107) mmol/L Carbon Dioxide 21 L (22-30) mmol/L Anion Gap 11.1 (5-15) MEQ/L BUN 14 (7-17) mg/dL Creatinine 0.66 (0.52-1.04) mg/dL Estimated GFR 118.0 ML/MIN Glucose 101 (74-106) mg/dL Calcium 8.5 (8.4-10.2) mg/dL Total Bilirubin 0.40 (0.2-1.3) mg/dL AST 38 H (14-36) U/L ALT 24 (0-35) U/L Alkaline Phosphatase 85 (38-126) U/L Serum Total Protein 5.6 L (6.3-8.2) g/dL Albumin 3.2 L (3.5-5.0) g/dL Slides for Path Review YES ABO Group Rh Factor Antibody Screen (NEGATIVE) Crossmatch COMPATIBLE (COMPATIBLE) Radiology Exams: Radiology Procedures Category Date Time Status PELVIC [US] Stat Exams 12/27/24 07:00 Completed Assessment/Plan (1) Retained placental fragment Current Visit: Yes Status: Acute Code(s): O72.0 - THIRD-STAGE HEMORRHAGE
[2024-12-27] MEDS: Sodium Chloride 0.9% 1000 ML 1,000 ML IV SCH (09:56)
[2024-12-27] MEDS ORDERED: Quelicin Fliptop 200 MG/10 ML ONE (10:09)
[2024-12-27] MEDS ORDERED: SUBLIMAZE 100 MCG/2 ML ONE (10:09)
[2024-12-27] MEDS ORDERED: propofoL IV ONE (10:09)
[2024-12-27] MEDS ORDERED: Versed 2 MG/2 ML Injection ONE (10:09)
[2024-12-27] MEDS ORDERED: PHENYLEPHRINE HCL ONE (10:22)
[2024-12-27] MEDS ORDERED: KEFZOL 1 GM ONE (10:22)
[2024-12-27] MEDS ORDERED: Zofran 4 MG/2 ML VIAL ONE (10:26)
[2024-12-27 10:29] LABS: Amphetamine,Urine NEGATIVE (NEGATIVE); Barbiturate,Urine NEGATIVE (NEGATIVE); Benzodiazepine,Urine NEGATIVE (NEGATIVE); Cocaine,Urine NEGATIVE (NEGATIVE); Methadone,Urine NEGATIVE (NEGATIVE); Opiate,Urine NEGATIVE (NEGATIVE); PCP,Urine NEGATIVE (NEGATIVE); THC,Urine NEGATIVE (NEGATIVE)
[2024-12-27] MEDS ORDERED: TRANEXAMIC 1,000 MG/100ML-NACL 1,000 MG/100 ML PIGGYBACK IV ONE (10:41)
--- NOTE | 2024-12-27 10:58 | PCM.DS ---
Discharge Summary Date of Admission: 12/26/24 20:21 Admitting Physician: BENJAMÍN GUTIERRES DO Consults: Consults on Case 12/26/24 21:18 Notify Physician ROUTINE Primary Care Provider: RACHANA JACOBS Allergies Allergies cefaclor [From Ceclor] Allergy (Verified 11/02/23 10:03) Rash by patient Hospital Summary - Hospital Course Hospital Course: pt was admitted on dec 26 after having delivered baby at home with digital publishing specialist and a fter delivery of placenta was noted having heavy vaginal bleeding. upon arrival to labor delivery vitals were stable with minimal bleeding that was noted and a firm uterus was noted. pt had a pelvic sonogram because of light bleeding through the nite and was noted having significant retained placental tissue. pt subsequently underwent suction d&c on dec 27 and was done so without complication. pt at this time stable for discharge and was advised to fu in office in 2 wks for postop check. pt was given iron supplementation upon discharge. pt was given txa 1gm upon arrival to labor delivery and was given 1gm after suction d&c. all questions answered prior to leaving the hospital and was advised to fu in office in 2 wks for postop check. - Vitals & Intake/Output Vital Signs: Vital Signs Temperature 97.4 F 12/27/24 09:51 Pulse Rate 95 H 12/27/24 09:51 Respiratory Rate 18 12/27/24 09:51 Blood Pressure 112/68 12/27/24 09:51 O2 Sat by Pulse Oximetry 99 12/27/24 09:51 Intake & Output: Intake & Output 12/24/24 12/25/24 12/26/24 12/27/24 11:59 11:59 11:59 11:59 Intake Total 850 Output Total 1831 Balance -981 Weight 90.904 kg - Lab Result Diagrams: 12/27/24 04:30 12/26/24 20:20 Lab Results-Last 24 Hrs: Lab Results-Last 24 Hours 12/26/24 12/26/24 12/26/24 Range/Units 20:20 20:20 20:20 WBC 23.1 H (3.98-10.04) x10^3/uL RBC 3.79 L (3.93-5.22) x10^6/uL Hgb 11.9 (11.2-15.7) g/dL Hct 35.4 (34.1-44.9) % MCV 93.4 (79.4-94.8) fL MCH 31.4 (25.6-32.2) pg MCHC 33.6 (32.2-35.5) g/dL RDW 15.8 H (11.7-14.4) % Plt Count 135 L (182-369) x10^3/uL MPV 10.8 (9.4-12.3) fL Gran % 87.7 H (34.0-71.1) % Immature Gran % (Auto) 0.6 H (0.001-0.429) % Nucleat RBC Rel Count 0.0 (0.00-0.2) % Eos # (Auto) 0.01 L (0.04-0.36) x10^3/uL Immature Gran # (Auto) 0.15 H (0.001-0.031) x10^3u/L Absolute Lymphs (auto) 1.41 (1.18-3.74) x10^3/uL Absolute Monos (auto) 1.24 H (0.24-0.86) x10^3/uL Absolute Nucleated RBC 0.00 (0.00-0.012) x10^3u/L Lymphocytes % 6.1 L (19.3-51.7) % Monocytes % 5.4 (4.7-12.5) % Eosinophils % 0.0 L (0.7-5.8) % Basophils % 0.2 (0.1-1.2) % Absolute Granulocytes 20.27 H (1.56-6.13) x10^3/uL Basophils # 0.04 (0.01-0.08) x10^3/uL APTT 24.4 L (25.1-36.5) SECONDS Sodium (135-145) mmol/L Potassium (3.5-5.1) mmol/L Chloride (98-107) mmol/L Carbon Dioxide (22-30) mmol/L Anion Gap (5-15) MEQ/L BUN (7-17) mg/dL Creatinine (0.52-1.04) mg/dL Estimated GFR ML/MIN Glucose (74-106) mg/dL Calcium (8.4-10.2) mg/dL Total Bilirubin (0.2-1.3) mg/dL AST (14-36) U/L ALT (0-35) U/L Alkaline Phosphatase (38-126) U/L Serum Total Protein (6.3-8.2) g/dL Albumin (3.5-5.0) g/dL Urine Opiates Level (NEGATIVE) Ur Methadone (NEGATIVE) Urine Barbiturates (NEGATIVE) Ur Phencyclidine (PCP) (NEGATIVE) Urine Amphetamine (NEGATIVE) U Benzodiazepine Level (NEGATIVE) Urine Cocaine (NEGATIVE) Urine Marijuana (THC) (NEGATIVE) Slides for Path Review YES ABO Group O Rh Factor POSITIVE Antibody Screen NEGATIVE (NEGATIVE) Crossmatch COMPATIBLE (COMPATIBLE) 12/26/24 12/26/24 12/27/24 Range/Units 20:20 20:20 04:30 WBC 16.9 H (3.98-10.04) x10^3/uL RBC 2.97 L (3.93-5.22) x10^6/uL Hgb 9.6 L (11.2-15.7) g/dL Hct 28.2 L (34.1-44.9) % MCV 94.9 H (79.4-94.8) fL MCH 32.3 H (25.6-32.2) pg MCHC 34.0 (32.2-35.5) g/dL RDW 16.0 H (11.7-14.4) % Plt Count 134 L (182-369) x10^3/uL MPV 11.0 (9.4-12.3) fL Gran % 80.0 H (34.0-71.1) % Immature Gran % (Auto) 0.5 H (0.001-0.429) % Nucleat RBC Rel Count 0.0 (0.00-0.2) % Eos # (Auto) 0.12 (0.04-0.36) x10^3/uL Immature Gran # (Auto) 0.09 H (0.001-0.031) x10^3u/L Absolute Lymphs (auto) 2.28 (1.18-3.74) x10^3/uL Absolute Monos (auto) 0.86 (0.24-0.86) x10^3/uL Absolute Nucleated RBC 0.00 (0.00-0.012) x10^3u/L Lymphocytes % 13.5 L (19.3-51.7) % Monocytes % 5.1 (4.7-12.5) % Eosinophils % 0.7 (0.7-5.8) % Basophils % 0.2 (0.1-1.2) % Absolute Granulocytes 13.55 H (1.56-6.13) x10^3/uL Basophils # 0.04 (0.01-0.08) x10^3/uL APTT (25.1-36.5) SECONDS Sodium 130 L (135-145) mmol/L Potassium 4.7 (3.5-5.1) mmol/L Chloride 102 (98-107) mmol/L Carbon Dioxide 21 L (22-30) mmol/L Anion Gap 11.1 (5-15) MEQ/L BUN 14 (7-17) mg/dL Creatinine 0.66 (0.52-1.04) mg/dL Estimated GFR 118.0 ML/MIN Glucose 101 (74-106) mg/dL Calcium 8.5 (8.4-10.2) mg/dL Total Bilirubin 0.40 (0.2-1.3) mg/dL AST 38 H (14-36) U/L ALT 24 (0-35) U/L Alkaline Phosphatase 85 (38-126) U/L Serum Total Protein 5.6 L (6.3-8.2) g/dL Albumin 3.2 L (3.5-5.0) g/dL Urine Opiates Level (NEGATIVE) Ur Methadone (NEGATIVE) Urine Barbiturates (NEGATIVE) Ur Phencyclidine (PCP) (NEGATIVE) Urine Amphetamine (NEGATIVE) U Benzodiazepine Level (NEGATIVE) Urine Cocaine (NEGATIVE) Urine Marijuana (THC) (NEGATIVE) Slides for Path Review YES ABO Group Rh Factor Antibody Screen (NEGATIVE) Crossmatch COMPATIBLE (COMPATIBLE) 12/27/24 Range/Units 10:33 WBC (3.98-10.04) x10^3/uL RBC (3.93-5.22) x10^6/uL Hgb (11.2-15.7) g/dL Hct (34.1-44.9) % MCV (79.4-94.8) fL MCH (25.6-32.2) pg MCHC (32.2-35.5) g/dL RDW (11.7-14.4) % Plt Count (182-369) x10^3/uL MPV (9.4-12.3) fL Gran % (34.0-71.1) % Immature Gran % (Auto) (0.001-0.429) % Nucleat RBC Rel Count (0.00-0.2) % Eos # (Auto) (0.04-0.36) x10^3/uL Immature Gran # (Auto) (0.001-0.031) x10^3u/L Absolute Lymphs (auto) (1.18-3.74) x10^3/uL Absolute Monos (auto) (0.24-0.86) x10^3/uL Absolute Nucleated RBC (0.00-0.012) x10^3u/L Lymphocytes % (19.3-51.7) % Monocytes % (4.7-12.5) % Eosinophils % (0.7-5.8) % Basophils % (0.1-1.2) % Absolute Granulocytes (1.56-6.13) x10^3/uL Basophils # (0.01-0.08) x10^3/uL APTT (25.1-36.5) SECONDS Sodium (135-145) mmol/L Potassium (3.5-5.1) mmol/L Chloride (98-107) mmol/L Carbon Dioxide (22-30) mmol/L Anion Gap (5-15) MEQ/L BUN (7-17) mg/dL Creatinine (0.52-1.04) mg/dL Estimated GFR ML/MIN Glucose (74-106) mg/dL Calcium (8.4-10.2) mg/dL Total Bilirubin (0.2-1.3) mg/dL AST (14-36) U/L ALT (0-35) U/L Alkaline Phosphatase (38-126) U/L Serum Total Protein (6.3-8.2) g/dL Albumin (3.5-5.0) g/dL Urine Opiates Level NEGATIVE (NEGATIVE) Ur Methadone NEGATIVE (NEGATIVE) Urine Barbiturates NEGATIVE (NEGATIVE) Ur Phencyclidine (PCP) NEGATIVE (NEGATIVE) Urine Amphetamine NEGATIVE (NEGATIVE) U Benzodiazepine Level NEGATIVE (NEGATIVE) Urine Cocaine NEGATIVE (NEGATIVE) Urine Marijuana (THC) NEGATIVE (NEGATIVE) Slides for Path Review ABO Group Rh Factor Antibody Screen (NEGATIVE) Crossmatch (COMPATIBLE) - Radiology Exams Ordered Rad Exams-Entire Visit: Radiology Procedures Category Date Time Status PELVIC [US] Stat Exams 12/27/24 07:00 Completed Final Diagnosis/Problem List - Final Discharge Diagnosis/Problem (1) Retained placental fragment Current Visit: Yes Status: Acute Code(s): O72.0 - THIRD-STAGE HEMORRHAGE - Discharge Disposition: Home, Self-Care Condition: Stable Prescriptions: No Action Magnesium 200 mg PO DAILY Ferrous Sulfate [Iron] 325 mg PO DAILY Calcium Carbonate [Calcium] 500 mg PO DAILY Follow up with: RACHANA JACOBS [Primary Care Provider] - BENJAMÍN GUTIERRES DO [ACTIVE STAFF] - 2 weeks
[2024-12-27 11:10] LABS: Hematocrit 27.5 % (34.1-44.9); Hemoglobin 9.4 g/dL (11.2-15.7); Mean Cell Volume 94.8 fL (79.4-94.8); Mean Corpuscular Hemoglobin 32.4 pg (25.6-32.2); Mean Corpuscular Hgb Concent. 34.2 g/dL (32.2-35.5); Mean Platelet Volume 11.5 fL (9.4-12.3); Platelet Count 141 x10^3/uL (182-369); Red Cell Distribution Width 16.4 % (11.7-14.4); White Blood Count 13.9 x10^3/uL (3.98-10.04)
[2024-12-27 11:22] LABS: ANION GAP 6.2 MEQ/L (5-15); Calcium 7.8 mg/dL (8.4-10.2); Creatinine 1 0.82 mg/dL (0.52-1.04); EST GLOMERULAR FILTRATION RATE 96.2 ML/MIN; Potassium 5.5 mmol/L (3.5-5.1)
[2024-12-27 13:04] VITALS: RESP 18; TEMP 98; O2SAT 98
[2024-12-27 15:37] LABS: ALBUMIN 2.9 g/dL (3.5-5.0); ANION GAP 7.6 MEQ/L (5-15); BILIRUBIN,TOTAL 0.3 mg/dL (0.2-1.3); Creatinine 1 0.8 mg/dL (0.52-1.04); EST GLOMERULAR FILTRATION RATE 99.1 ML/MIN; Potassium 3.9 mmol/L (3.5-5.1); Total Protein 5.3 g/dL (6.3-8.2)
[2024-12-27] MEDS: FERREX 150 PO SCH (16:02)
[2024-12-27 17:39] VITALS: BP 105/59; PULSE 116
--- NOTE | 2024-12-28 14:27 | OP ---
SURGERY DATE/TIME: 12/27/2024 [id number] PREOPERATIVE DIAGNOSIS: Retained placental tissue with bleeding. POSTOPERATIVE DIAGNOSIS: Retained placental tissue with bleeding. PROCEDURE: Suction dilatation and curettage with removal of retained placental tissue. SURGEON: Fam Conn DO PMO LEAD: [employer] Posadas. ANESTHESIA: General. ESTIMATED BLOOD LOSS: 150 mL. COMPLICATIONS: None. INDICATIONS: The risks, benefits, indications, and alternatives of the procedure were reviewed with the patient prior to the procedure. Patient understood the risks of infection, bleeding, bowel injury, bladder injury, uterine perforation, pelvic infection, thromboembolic disorder associated with the surgery, and desires to have the surgery as a possible means to alleviate her current medical condition. The patient was a 34-year-old patient, 5, para 4, who presented to labor and delivery after she had delivered her baby on 12/27 at approximately 4 p.m. with subsequent delivery of placenta. However, was informed by the test skein winder that the placental tissue was not removed intact. The patient subsequently had significant bleeding as they called the ambulance and arrived to labor and delivery where her vital signs remained stable during her day with a stable hemoglobin. Patient, however, continued to have vaginal bleeding and ultrasound that was done on 12/28 in the morning showed retained placental tissue. DESCRIPTION OF PROCEDURE AND FINDINGS: Patient was subsequently taken to the operating room, given general sedation, placed in the dorsal lithotomy position, prepped and draped in the usual sterile fashion. The weighted speculum was then placed in the patient's vagina, and the anterior lip of the cervix was grasped with a ring forceps. From this point, ring forceps was used to remove what was visible from placental tissue which was a significant amount, approximately one-quarter of the placental tissue that had remained. After visually removing physically the placental tissue that in sight, a suction Vacurette was then placed into the fundus of the uterus where the suction machine was turned on, removing more placental tissue and products of conception. After significant bouts of suctioning, a curette was then subsequently placed into the fundus of the uterus and curettage was performed in all quadrants of the uterus, retrieving a [id number] amount of tissue where there was grittiness that was noted upon curettage and there was no more placental tissue that was noted upon examination. From this point, there was minimal bleeding that was noted from her cervix. All instruments were then removed from the patient's vaginal region. Patient was then taken out of the dorsal lithotomy position, was taken out of anesthesia, and was then taken to the recovery room in stable condition. All instruments and laps were accounted for x2.
[2024-12-29 00:40] LABS: RPR Non Reactive (Non Reactive)
== END 2024-12-27 17:00 | disposition home or self-care (01) ==
LOC: OB 20:21 → INTOOBSV 20:21
PROVIDERS: ADMIT Obstetrics & Gynecology; ATTEND Obstetrics & Gynecology
DX: O72.2 Delayed and secondary postpartum hemorrhage (principal)
CPT/HCPCS: 36415; 59160; 76856; 80048; 80053; 80307; 85025; 85027; 85730; 86592; 86850; 86900; 86901; 86922; G0378; G0379; 99140; J0330; J0690; J2250; J2371; J2405; J2704; J3010; A9270-GY